=== PATIENT | female | born 1995 | race Caucasian/White ===

== ENCOUNTER 2018-06-15 19:59 | Emergency (ER) | payer OTHER, SELFPAY ==
[2018-06-15 20:03] VITALS: BP 151/91; PULSE 104; RESP 22; TEMP 37.2; O2SAT 98; BMI 47.7
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
[2018-06-15] MEDS: HYDROcodone Bitartrate/Apap 5/325 Tablet PO (20:33)
[2018-06-15 20:34] VITALS: O2SAT 98
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
[2018-06-15 21:33] VITALS: BP 137/100; PULSE 96; RESP 20; O2SAT 98
== END 2018-06-15 21:42 | disposition home or self-care (01) ==
PROVIDERS: Emergency Provider Emergency Medicine; Family Provider Student in an Organized Health Care Education/Training Program; PCP Student in an Organized Health Care Education/Training Program
DX: S16.1XXA Strain of muscle, fascia and tendon at neck level, initial encounter (principal); S40.021A Contusion of right upper arm, initial encounter; S20.211A Contusion of right front wall of thorax, initial encounter; V89.2XXA Person injured in unspecified motor-vehicle accident, traffic, initial encounter; Y93.9 Activity, unspecified; Y92.9 Unspecified place or not applicable
CPT/HCPCS: 70450; 71101; 72125; 73080; 99284

== ENCOUNTER 2019-06-05 19:35 | Emergency (ER) | payer OTHER, SELFPAY ==
[2019-06-05 19:35] VITALS: BP 163/81; PULSE 103; RESP 18; TEMP 36.6; O2SAT 98; BMI 43.0
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
[2019-06-05 21:27] VITALS: RESP 16
== END 2019-06-05 21:29 | disposition home or self-care (01) ==
PROVIDERS: Emergency Provider Emergency Medicine; Family Provider Student in an Organized Health Care Education/Training Program; PCP Student in an Organized Health Care Education/Training Program
DX: S97.81XA Crushing injury of right foot, initial encounter (principal); W55.19XA Other contact with horse, initial encounter; Y93.9 Activity, unspecified; Y92.9 Unspecified place or not applicable
CPT/HCPCS: 73630; 99283

== ENCOUNTER 2019-12-24 22:07 | Emergency (ER) | payer OTHER, SELFPAY ==
[2019-12-24 22:07] VITALS: BP 134/88; PULSE 107; RESP 15; TEMP 36.8; O2SAT 98; BMI 39.3
--- NOTE | 2019-12-24 22:38 | ED.VIS.GEN ---
History of Present Illness Chief Complaint: Abd Pain Informant: Patient Narrative: Patient presents on day 3 of her symptoms. Micah she developed diarrhea with a burning upper abdominal pain. She now describes it as cramping burning and occasionally sharp. She continues to have diarrhea. No nausea or vomiting. No fevers or rashes. No recent travel, antibiotics, or bad food exposures. No acquaintances with similar symptoms. He denies any prior abdominal surgeries. No home treatment such as Imodium Pepto-Bismol etc. she describes the diarrhea as watery to yellow. No blood. She reports that she has been urinating normally. Past Medical History - Allergies and Home Meds Allergies/Adverse Reactions: Allergies Penicillins Allergy (Verified 12/24/19 22:12) Other Primary Care Physician: Venkat Pena DO [Primary Care Provider] - Smoking Status: Never smoker Review of Systems General: Denies: Chills, Fever, Sweats Eyes: Denies: Visual changes - bilaterally, Diplopia ENT: Denies: Rhinorrhea, Sore throat Cardiovascular: Denies: Chest pain, Palpitations Respiratory: Denies: Dyspnea, Cough, Dyspnea on exertion Gastrointestinal: Reports: Abdominal pain, Diarrhea. Denies: Nausea, Vomiting, Melena, Hematochezia Genitourinary: Denies: Dysuria, Hematuria, Frequency Musculoskeletal: Denies: Back pain, Extremity Pain Skin: Denies: Rash, Wounds Neurological: Denies: Headache, Weakness, Numbness Physical Exam Vital Signs/Narrative: Vital Signs Temp Pulse Resp BP Pulse Ox 12/24/19 22:07 98.3 F 107 H 15 134/88 H 98 Inital Vital Signs reviewed: Yes General: Well nourished, Well developed, No Acute Distress Head: Normocephalic, Atraumatic Eyes: Perrl, EOMI ENT: Moist mucous membranes, No rhinorrhea Neck: Supple, Nontender Cardiovascular: Regular rate, Regular rhythm, No murmurs Respiratory: No distress, CTA bilaterally, Chest nontender Abdomen: Soft, Nondistended, Normal bowel sounds, Tender - Tenderness in the epigastrium. Negative for: Guarding, Rebound tenderness Back: Nontender, Normal Inspection Extremities: Nontender, No edema Skin: Normal color, No rash Neurological: Alert, Oriented x3, Cranial nerves II-XII grossly intact, Normal Strength, Normal Sensation Psychological: Normal affect, Normal Mood Diagnostic/Tx/Re-eval - Medical Decision Making Psych labs showed a normal white count. Potassium 3.2. Liver enzymes normal. Lipase normal. Patient received a GI cocktail and Imodium. She received 1 L of IV fluids. This point I believe this most likely gastroenteritis. The burning upper abdominal pain is probably gastritis. I will write for some Zofran in case the patient does develop vomiting. I did encourage her to take Imodium for the diarrhea return if worsening or concerns follow-up if not improving ED Disposition - Plan for ED Patient: Disposition: Home or Assisted Living Diagnosis: Gastroenteritis Instructions: GASTROENTERITIS, Viral (6y-Adult) Prescriptions: Ondansetron [Zofran Odt] 4 mg PO Q6H PRN PRN #20 tab PRN Reason: Nausea Prescription Printed Referrals: Venkat Pena DO [Primary Care Provider] - As Needed
[2019-12-24] MEDS: 0.9% Normal Saline 1,000 ML 999 ML IV (22:51)
[2019-12-24] MEDS: Loperamide 2 MG Capsule 4 MG PO (22:52)
[2019-12-24] MEDS: Mag Hydrox/Al Hydrox/Simeth 30 ML UDC PO (22:57)
[2019-12-24 23:31] LABS: Absolute Lymphocyte Count 1.74 X10^3/uL (0.83-4.51); Basophil# 0.05 X10^3/uL; Basophil% 0.6 % (0-1); Eosinophils% 1.2 % (0-5); Hematocrit 44.4 % (37-47); Hemoglobin 14.6 g/dL (12.0-15.0); Lymphocyte # 1.74 X10^3/ul (4.0); Lymphocyte % 21.4 % (19-41); Mean Corp Hgb Conc 32.9 g/dL (32-36); Mean Corpuscular Hgb 28.4 pg (27.0-32.0); Mean Corpuscular Volume 86.4 fL (81-99); Mean Platelet Vol. 9.4 fl (6.2-12.0); Monocyte# 1.17 X10^3/uL; Monocyte% 14.4 % (0-10); NRBC Flagged by Analyzer 0 % (0-5); Neutrophil # 4.98 X10^3/uL (2.7-7.7); Neutrophil % 61.3 % (47-70); Platelet Count 249 K/mm3 (150-450); RBC Distribution Width SD 40.4 fl (35.1-43.9); Red Blood Count 5.14 M/mm3 (4.2-5.4); White Blood Count 8.1 K/mm3 (4.4-11.0)
[2019-12-24 23:36] LABS: ALB/GLOB Ratio 0.8 RATIO (0.9-2.4); AST(SGOT) 29 U/L (15-37); Alanine Aminotransfer ALT/SGPT 43 U/L (13-56); Albumin, Serum 3.2 g/dL (3.2-5.0); Alkaline Phosphatase 66 U/L (45-117); Anion Gap 8 (5-15); BUN 8 mg/dL (7-18); BUN/Creat Ratio 9.9 RATIO (10-20); Calcium,Total 8.6 mg/dL (8.5-10.1); Chloride 103 mmol/L (98-107); Creatinine, Serum 0.81 mg/dL (0.55-1.02); EST Glomerular Filtration Rate 92 mL/min (>60); Est Glom Filt Rate - Afr Amer 112 mL/min (>60); Estimated Creatinine Clearance 104.15 ml/min; Globulin 4.2 g/dL (2.2-4.2); Glucose 81 mg/dL (74-106); Lipase 283 U/L (73-393); Potassium 3.2 mmol/L (3.5-5.1); Protein, Total 7.4 g/dL (6.4-8.2); Sodium Level 137 mmol/L (136-145)
[2019-12-25 00:33] VITALS: BP 128/78; PULSE 99; RESP 16; O2SAT 97
== END 2019-12-25 00:34 | disposition home or self-care (01) ==
PROVIDERS: Emergency Provider Emergency Medicine; PCP Student in an Organized Health Care Education/Training Program
DX: K52.9 Noninfective gastroenteritis and colitis, unspecified (principal)
CPT/HCPCS: 80053; 83690; 85025; 96360; 96361; 99284; J7030

== ENCOUNTER 2021-03-14 06:32 | Emergency (ER) | payer OTHER, SELFPAY ==
[2021-03-14 06:33] VITALS: BP 175/122; PULSE 133; RESP 18; TEMP 36.7; O2SAT 100; BMI 42.7
--- NOTE | 2021-03-14 06:37 | US_ITS ---
STUDY: ABDOMINAL ULTRASOUND - RIGHT UPPER QUADRANT REASON FOR VISIT: Female, 25 years old PAIN TECHNIQUE: Ultrasound evaluation of the right upper quadrant was performed with real-time and static ryan-scale imaging. TECHNICAL QUALITY: Adequate. COMPARISON: None. FINDINGS: Liver: The liver measures 18.1 cm. There is normal echogenicity of the liver. The bile ducts are within normal limits. There is hepatic color flow. The direction of portal flow is hepatopetal. There is no demonstrated mass lesion. Gallbladder: Normal distended gallbladder. The gallbladder wall measures 2 mm. There is a negative sonographic Rosas''s sign. There is no pericholecystic fluid. There are multiple echogenic structures within the gallbladder, consistent with multiple gallstones. Common Bile Duct (C.B.D.): The common bile duct measures 4 mm. Pancreas: Normal size of the head, body and tail of the pancreas. There is normal echogenicity of the pancreas. There is no demonstrated pancreatic mass or cyst. Right Kidney: Normal size of the right kidney. The right kidney measures 12.3 cm. Normal renal cortex. The right cortex measures 1.5 cm. There is no demonstrated renal mass or cyst. There is no right hydronephrosis. US/Gallbladder IMPRESSION: Cholelithiasis. Electronically Signed: Evaristo Urban MD at 8:18 EDT Tel , Service support ,
--- NOTE | 2021-03-14 06:38 | ED.DCSUM_ITS ---
History of Present Illness <Isi Brown - Last Filed: 03/14/21 09:11> Informant: Patient Narrative: 25-year-old female with no significant past medical history presents with concern for right upper quadrant pain. States it began approximately 1 hour ago. Sudden onset. Aching. Nausea without vomiting. States that she feels like she is full of gas. Denies any urinary symptoms, vaginal bleeding or discharge, constipation or diarrhea. Denies any concern for or STDs. <SharminbarryKavon - Last Filed: 03/16/21 10:10> Chief Complaint: Abd Pain Past Medical History <Isi Brown - Last Filed: 03/14/21 09:11> Prior records reviewed: Yes Past Medical History: None Surgical History: no surgical history Lives: With Family Smoking Status: Never smoker Alcohol: None Drugs: None <JoseKavon - Last Filed: 03/16/21 10:10> - Allergies and Home Meds Allergies/Adverse Reactions: Allergies Penicillins Allergy (Verified 03/14/21 06:37) Other Primary Care Physician: Venkat Pena DO [Primary Care Provider] - Usha Francisco MD [STAFF PHYSICIAN] - Review of Systems General: Denies: Chills, Fever, Sweats Eyes: Denies: Visual changes - bilaterally, Diplopia ENT: Denies: Rhinorrhea, Sore throat Cardiovascular: Denies: Chest pain, Palpitations Respiratory: Denies: Dyspnea, Cough, Dyspnea on exertion Gastrointestinal: Reports: Abdominal pain, Nausea. Denies: Vomiting, Diarrhea, Melena, Hematochezia Genitourinary: Denies: Dysuria, Hematuria, Frequency Musculoskeletal: Denies: Back pain, Extremity Pain Skin: Denies: Rash, Wounds Neurological: Denies: Headache, Weakness, Numbness <Kavon Garcia - Last Filed: 03/16/21 10:10> Physical Exam Vital Signs/Narrative: Vital Signs Temp Pulse Resp BP Pulse Ox 03/14/21 08:47 75 16 128/72 H 98 03/14/21 06:33 98.1 F 133 H 18 175/122 H 100 <Isi Brown - Last Filed: 03/14/21 09:11> Vital Signs/Narrative: Vital Signs Temp Pulse Resp BP Pulse Ox 03/14/21 06:33 98.1 F 133 H 18 175/122 H 100 Inital Vital Signs reviewed: Yes General: Well nourished, Well developed, No Acute Distress Head: Normocephalic, Atraumatic Eyes: Perrl, EOMI ENT: Moist mucous membranes, No rhinorrhea Neck: Supple, Nontender Cardiovascular: Regular rate, Regular rhythm, No murmurs Respiratory: No distress, CTA bilaterally, Chest nontender Abdomen: Soft, Nondistended, Normal bowel sounds, Tender, Rosas's sign, - - RUQ tenderness Back: Nontender, Normal Inspection Extremities: Nontender, No edema Skin: Normal color, No rash Neurological: Alert, Oriented x3, Cranial nerves II-XII grossly intact, Normal Strength, Normal Sensation Psychological: Normal affect, Normal Mood <Kavon Garcia - Last Filed: 03/16/21 10:10> Diagnostic/Tx/Re-eval - Medical Decision Making Patient was checked out to me to check gallbladder ultrasound results. Gallbladder ultrasound shows Cholelithiasis. Patient is resting comfortably on reevaluation. Her pain is controlled. Discussed with Dr. Francisco and patient will follow-up as an outpatient. She is given prescription for [place]. Advised return to the ED for worsening complaints. <Isi Brown - Last Filed: 03/14/21 09:11> - Medical Decision Making Patient having pain in her right upper quadrant on evaluation. Tachycardic with normal blood pressure. Patient treated with pain medication as well as antiemetics and a fluid bolus. Patient will be signed out to oncoming physician pending an ultrasound of the right upper quadrant. Stable at time of handoff. <Kavon Garcia - Last Filed: 03/16/21 10:10> ED Disposition <Isi Brown - Last Filed: 03/14/21 09:11> <Kavon Garcia - Last Filed: 03/16/21 10:10> - Plan for ED Patient: Disposition: Home or Assisted Living Instructions: ED Gallstones with Biliary Colic Prescriptions: Hydrocodone Bitart/Apap 5-325 [[place] 5MG-325MG] 1 tablet PO Q6H PRN PRN 3 Days #10 tab PRN Reason: Pain Prescription Printed Referrals: Venkat Pena DO [Primary Care Provider] - Usha Francisco MD [STAFF PHYSICIAN] -
[2021-03-14] MEDS: 0.9% Normal Saline 1,000 ML 999 ML IV (06:46)
[2021-03-14] MEDS: Ondansetron 4 MG/2 ML Vial IV (06:46)
[2021-03-14] MEDS: HYDROmorphone 1 MG/ML Syringe 0.5 MG IV (06:46)
[2021-03-14 06:50] LABS: Absolute Lymphocyte Count 4.01 X10^3/uL (0.83-4.51); Absolute Neutrophil Count 6.1 X10^3/uL (2.0-7.7); Basophil# 0.03 X10^3/uL; Basophil% 0.3 % (0-1); Eosinophil# 0.06 X10^3/uL; Eosinophils% 0.5 % (0-5); Hematocrit 40.7 % (37-47); Hemoglobin 13.2 g/dL (12.0-15.0); Lymphocyte # 4.01 X10^3/ul (0.83-4.51); Lymphocyte % 36.5 % (19-41); Mean Corp Hgb Conc 32.4 g/dL (32-36); Mean Corpuscular Hgb 28.3 pg (27.0-32.0); Mean Corpuscular Volume 87.3 fL (81-99); Mean Platelet Vol. 9.2 fl (6.2-12.0); Monocyte% 7.3 % (0-10); Mucous, Urine 0 SEEN /hpf (<or=2+); NRBC Flagged by Analyzer 0 % (0-5); Neutrophil # 6.06 X10^3/uL (2.7-7.7); Platelet Count 348 K/mm3 (150-450); RBC Distribution Width CV 13.4 % (11.6-14.6); RBC Distribution Width SD 42.4 fl (35.1-43.9); Red Blood Count 4.66 M/mm3 (4.2-5.4)
[2021-03-14 06:53] LABS: Color, Urine Yellow (Yellow); Glucose, Dipstick 50 mg/dl (Normal); Ketone-Dipstick Negative (Negative); Leukocyte Esterase-Dipstick 25 /ul (Negative); Nitrite-Dipstick Negative (Negative); Occult Blood-Urine 25 /ul (Negative); Protein-Dipstick Negative (Negative); Urine Bilirubin Dipstick Negative (Negative); Urine Clarity Clear (Clear); Urine Urobilinogen Normal (Normal)
[2021-03-14 06:59] LABS: Bacteria 2+ /hpf (None Seen); Internal QC Validated? YES +Cl - CLEAR BKGD; Pregnancy, Urine Negative Negative; Red Blood Cells-Urine 0-5 SEEN /hpf (0-5); Squamous Epithelial Cells - UA 0-5 SEEN /hpf (5-10); White Blood Cells 5-10 SEEN /hpf (0-5)
[2021-03-14 07:00] LABS: Transitional Epithelial - Ur 0-5 SEEN /hpf (0-5)
[2021-03-14 07:07] LABS: ALB/GLOB Ratio 0.8 RATIO (0.9-2.4); AST(SGOT) 10 U/L (15-37); Alanine Aminotransfer ALT/SGPT 20 U/L (13-56); Albumin, Serum 3.5 g/dL (3.2-5.0); Alkaline Phosphatase 62 U/L (45-117); Anion Gap 6 (5-15); BUN 12 mg/dL (7-18); BUN/Creat Ratio 19.2 RATIO (10-20); Calcium,Total 8.6 mg/dL (8.5-10.1); Chloride 106 mmol/L (98-107); Creatinine, Serum 0.63 mg/dL (0.55-1.02); EST Glomerular Filtration Rate 123 mL/min (>60); Est Glom Filt Rate - Afr Amer 149 mL/min (>60); Estimated Creatinine Clearance 132.75 ml/min; Globulin 4.2 g/dL (2.2-4.2); Glucose 102 mg/dL (74-106); Lipase 440 U/L (73-393); Potassium 3.7 mmol/L (3.5-5.1); Protein, Total 7.7 g/dL (6.4-8.2); Sodium Level 138 mmol/L (136-145)
[2021-03-14 08:47] VITALS: BP 128/72; PULSE 75; RESP 16; O2SAT 98
== END 2021-03-14 09:35 | disposition home or self-care (01) ==
LOC: ED 07:50
PROVIDERS: Emergency Provider Emergency Medicine; PCP Student in an Organized Health Care Education/Training Program
DX: R10.11 Right upper quadrant pain (principal); R11.0 Nausea; R00.0 Tachycardia, unspecified; K80.20 Calculus of gallbladder without cholecystitis without obstruction
CPT/HCPCS: 76705; 80053; 81001; 81025; 83690; 85025; 96361; 96374; 96375; 99283; J7030; A4216; J2405

== ENCOUNTER 2021-03-25 11:34 | Day surgery (SDC) | payer OTHER, SELFPAY ==
--- NOTE | 2021-03-24 18:18 | PCM.HP.BLA ---
History and Physical Date of Admission: 03/25/21 Carine Mcmahon 1995 ? ? REFERRING PHYSICIAN:? ?[facility] ? CHIEF COMPLAINT:? ?No chief complaint on file.? ? HPI: The patient is a 25 year old female who presented to [facility] ED with complaint of RUQ abdominal pain. She denies previous episodes.? Though she was hospitalized a year ago with acute pancreatitis with diarrhea. She describes the pain as a sudden onset, described as a sharp, pressure type pain, causing her to double over. She had nausea but no emesis. Went to ED on 03/14/2021 with US gallbladder revealing the following gallbladder wall measures 2mm..no pericholecystic fluid..,multiple echogenic structures within the gallbladder consistent with multiple gallstones...,CBD measures 4mm. She denies biliary obstructive signs such as jaundice or icterus. Denies fevers. No gallbladder disease known in family. Today, she has minimal abdominal pain. ? ? PAST MEDICAL HISTORY DiagnosisDate ?BMI>40? PAST SURGICAL HISTORY ProcedureLateralityDate ?NONE ? ? ? Current Outpatient Medications MedicationSig ?HYDROcodone-acetaminophen (NORCO) 5-325 mg per tabletTake 1 tablet by mouth every 8 hours as needed. ?levothyroxine (SYNTHROID) 50 mcg tabletTake 1 tablet by mouth once daily. Take on empty stomach. For Thyroid ?Drospirenone-Ethinyl Estradiol (KELLEN, 28,) 3-0.02 mg per tabletTake 1 tablet by mouth once daily. ?Cholecalciferol, Vitamin D3, 125 mcg (5,000 unit) capTake 1 capsule by mouth once daily. ?aspirin/acetaminophen/caffeine (EXCEDRIN MIGRAINE ORAL)Take 500 mg by mouth as needed. ? ? ALLERGIES: Bactrim [Sulfamethoxazole-Trimethoprim] and Penicillin ? PERSONAL HISTORY:? Social History ? Tobacco Use ?Smoking status:Never Smoker ?Smokeless tobacco:Never Used Vaping Use ?Vaping Use:Never used Substance Use Topics ?Alcohol use:Yes ? Comment: Socially ?Drug use:No ?? ? FAMILY HISTORY? ProblemRelationAge of Onset ?other (endometriosis)Mother? ?Skin CancerFather? Skin- basal cell (ears, nose), melanoma (back) ?other (PCOS)Sister? ?Pancreatic CancerMaternal [id number] ?? ? pancreatic ?DiabetesMaternal Grandfather? ?HeartPaternal Grandmother? ?DiabetesPaternal Grandmother? ?Breast CancerPaternal Grandmother? Breast Cancer, and Skin Cancer ?Skin CancerPaternal Grandmother? ?DiabetesPaternal Grandfather? ?Skin CancerPaternal Grandfather? ? ? REVIEW OF SYSTEMS: General - denies fevers, denies anorexia, denies weight loss Cardiovascular - denies chest pain, denies history of ND Pulmonary - denies shortness of breath, denies coughing up blood Gastrointestinal - see HPI, denies hematemesis, denies blood in stools Neurological - denies seizures, denies chronic numbness/weakness of extremities, denies chronic headaches Genitourinary - had kidney stone in past, denies burning with urination, denies blood in urine Hematological - denies spontaneous/prolonged bleeding Skin - denies nonhealing skin wounds Musculoskeletal - no new muscle/bone pain Endocrine - denies diabetes, has hypothyroidism Psychological ? denies hallucinations ? ? PHYSICAL EXAMINATION: General:? The patient is 25 year old female, well nourished, well hydrated in no acute distress.? The patient is oriented to time, place, and person. VITALS: Ht: 5'7? ?Wt 264#? ?Temp 98.5F? ?RR 16? ?HR 97 ? Head ? Normocephalic. EOM intact with sclera clear and no icterus noted. Wearing glasses Neck - supple with no jugular venous distention noted. Trachea is midline.? Lungs ? clear to auscultation. Normal breath sounds. No rales/rhonchi/wheezing noted. No labored breathing noted, such as retractions. No cough heard. Heart ? normal S1 and S2 auscultated. No rubs/clicks/murmurs noted. Regular rate. Abdomen ? soft and benign. Normal bowel sounds. No abdominal bruits noted. Difficult to determine if any masses or organomegaly due to body habitus. Extremities ? no calf tenderness noted. No pitting edema noted. Skin ? normal skin integrity. Neurological ? gait normal, no focal deficits noted. Psych ? calm and appropriate RADIOLOGIC STUDIES:? As Noted ? ? IMPRESSION: biliary colic, cholelithiasis ? PLAN:? ?I have discussed the above with the patient. I have reviewed the radiographs. I have offered laparoscopic cholecystectomy, possible cholangiograms I have explained the procedure to the patient. I have counseled the patient as to the risks of the procedure, including but not limited to: infection, bleeding, injury to any blood vessels/nerves, scar tissue, injury to any intrabdominal organs, injury to bowel/bladder, injury to the common bile duct/biliary tree, bile leakage, intraabdominal abscess/bleeding, hernias at incisional sites, wound infections, complications of anesthesia, etc. ? the patient understands. ? The patient was offered a surgery/procedure . The provider and patient have discussed in detail the risk of exposure to and/or potential harm posed by the COVID-19 virus with having a surgery/procedure at this time versus the risk of? delaying the surgery/procedure. It is not possible to know either the risk of delaying the surgery or procedure or chance of getting an infection with perfect accuracy, but a joint decision was made between the patient and the provider? to proceed at this time with the scheduled surgery/procedure. ? The patient wishes to proceed.? ? ? I have answered all questions to the patient?s satisfaction and the patient has no further questions. . Diagnoses: (K80.20) Calculus of gallbladder without cholecystitis without obstruction? (primary encounter diagnosis) ? ? ? Return to Clinic: The patient is instructed to follow-up with me after the procedure. ? I have confirmed and edited as necessary, the PFSH and ROS obtained by others. ? Usha Francisco MD
[2021-03-25] VITALS (11 sets, daily range): BP systolic 102–128; BP diastolic 52–79; PULSE 75–91; RESP 16–18; TEMP 36.2–37.4; O2SAT 93–99; BMI 42.5
--- NOTE | 2021-03-25 11:05 | EKG12_ITS ---
Test Reason : PRE-OP Blood Pressure : / mmHG Vent. Rate : 077 BPM Atrial Rate : 077 BPM P-R Int : 140 ms QRS Dur : 080 ms QT Int : 370 ms P-R-T Axes : 049 041 039 degrees QTc Int : 418 ms Normal sinus rhythm Normal ECG Confirmed by SHARON LOVE, JAELYN ([id number]), manager editorial HA FRIED ([id number]) on 03/27/2021 9:07:51 AM Referred By: Usha Francisco Confirmed By:JAELYN HERRERA MD
[2021-03-25 12:22] LABS: Internal QC Validated? YES +Cl - CLEAR BKGD; Pregnancy, Urine Negative Negative
[2021-03-25] MEDS: Lactated Ringers 1,000 ML 125 ML IV ×3 (12:26→17:40)
[2021-03-25] MEDS: Bupiv/Epi 0.25% 30 ML Vial (12:51)
--- NOTE | 2021-03-25 13:15 | GALL_PTH ---
PATIENT: EFRA WALLACE LOC: [facility] U#:[id number] AGE/SX: 25/F ROOM: RE03/25/[address]: Dr. Usha Francisco MD : 1995 BED: DIS: 03/25/2021 SPEC #: [id number] RECD: 03/25/21 15:01 STATUS: LASHAUN AG #: [id number] MAURILIO: 03/25/21 13:[address]: Usha Francisco DEPT: SURGICAL PATHOLOGY RECD BY: Emilie Zabala ENTERED: 03/26/21 09:28 SP TYPE: [place] DR: Dr. Venkat Pena DO Tissues: Gallbladder, NOS Procedures: Surgery Specimen Level III HEADER OPERATION: Laparoscopic cholecystectomy with IOC PRE-OP DIAGNOSIS: Biliary colic, cholelithiasis TISSUE SUBMITTED: Gallbladder and contents MICROSCOPIC DIAGNOSIS Gallbladder and contents, cholecystectomy: Chronic cholecystitis, cholelithiasis and cholesterolosis. SJ:dina 03/27/2021 MICROSCOPIC DESCRIPTION Slides are reviewed. GROSS DESCRIPTION Received is one container labeled with the patient's name and designated gallbladder and contents. The specimen consists of a gallbladder measuring 6.5 cm in length and up to 3 cm in diameter. The external surface is pink-caruso, smooth and glistening for the most part. Focally it is granular, hemorrhagic and contains cautery artifact. The gallbladder contains green-yellow mucoid bile and four mulberry, yellow stones measuring in aggregate 2.4 x 1.5 x 0.7 cm and 0.5 to 1 cm in greatest dimension. The mucosa is bile-stained and without any mass lesions. The gallbladder wall measures up to 0.2 cm in thickness. The mucosa also shows several yellowish streaks consistent with cholesterolosis. Hedis Nurse sections from the gallbladder and the cystic duct are submitted in one cassette. / VÍCTOR:dina 03/26/21 TC:3 CPT: 71172
--- NOTE | 2021-03-25 14:01 | RAD_ITS ---
STUDY: INTRAOPERATIVE CHOLANGIOGRAM. REASON FOR EXAM: Female, 25 years old. LAPAROSCOPIC, CHOLECYSTECTOMY WITH IOC FLUOROSCOPY TIME (if supplied): ( 5 seconds ) minutes/seconds. One image was submitted. TECHNIQUE: Intraoperative cholangiogram was performed by the surgeon. Imaging was submitted. COMPARISON: None. FINDINGS: The visualized intrahepatic and extrahepatic biliary ducts are unremarkable. Free flow of contrast is seen in the duodenum. RAD/Cholangiogram/ O R,Initial IMPRESSION: Unremarkable intraoperative cholangiogram. Electronically Signed: Deandre Mejias MD at 14:51 EDT , Service support ,
--- NOTE | 2021-03-25 14:26 | PCM.OPRPT ---
Report of Operation Date of Procedure: 03/25/21 Pre-Operative Diagnosis: cholelithiasis Post-Operative Diagnosis: chronic cholecystitis, cholelithiasis Surgery/Procedure Performed:: laparoscopic cholecystectomy with cholangiograms Description of Surgical Findings:: normal cholangiograms movie shot camera operator: Leatha Lobo movie shot camera operator: Dangelo George Type of Anesthesia: General Anesthesiologist: Edwin Reed Specimen's removed: gallbladder and contents Drains: none Estimated Blood Loss (mL): < 10 ml Fluids Replaced: 1000 ml RL Description of Procedure: After informed consent was given, the patient was brought to the Operating Room. Appropriate time out protocol was followed. The patient was placed in the supine position. The patient was then placed under general endotracheal anesthesia by the anesthesia provider. The abdomen was then prepped with a sterile surgical skin preparation and sterile surgical drapes were placed. An area superior to the umbilical dimple was grasped with penetrating clamps and the skin and subcutaneous tissues were infiltrated with 0.25% marcaine with epinephrine. A skin incision was then made with a 15 blade scalpel. The anterior abdominal wall was elevated and a Veress needle was carefully inserted into the intraabdominal cavity. It was checked to be in the proper position with a normal saline drop test. A CO2 pneumoperitoneum was then created. Once this was achieved, then the Veress needle was removed and an 11mm trocar was placed in its stead. A 10mm laparoscope was then inserted into the trocar and careful attention was directed to the intraabdominal contents. There was no evidence of injury to any intraabdominal organs from insertion of the Veress needle or the trocar. Under direct visualization, a 5mm subxiphoid trocar and two lateral 5mm right subcostal trocars were placed. The skin and subcutaneous tissues at these sites were infiltrated with 0.25% marcaine with epinephrine prior to placement of these trocars. Attention was then directed to the right upper quadrant of the abdomen. Graspers were placed in the lateral trocars to grasp the distal aspect of the gallbladder and direct it cephalad and to grasp the gallbladder at King?s pouch and direct it laterally. Dissection then began on the proximal gallbladder continuing down to the area of the triangle of Calot to bluntly dissect out the cystic duct. The neck of the gallbladder was identified and blunt dissection continued to dissect out a segment of the cystic duct. A clip was then placed on the neck of the gallbladder. A small ductotomy was then made. A Ranfac catheter was brought in through a separate skin incision and placed into the cystic duct. An intraoperative cholangiogram was performed under fluoroscopy. The xray revealed no lesions in the common bile duct, arborization of the biliary tree, and good flow into the duodenum. The Ranfac catheter was then removed and two clips were placed proximal to the ductotomy and the cystic duct was then transected. The cystic artery was visualized and bluntly isolated and then two clips were placed proximally and one clip distally and then it was transected between the proximal and distal clips. The gallbladder was then from the liver bed using electrocautery. Once from the liver bed, it was brought out via the umbilical port. It was then forwarded to pathology for analysis. The liver bed was carefully examined. There was no evidence of bile leakage or bleeding. The cystic duct stump and cystic artery stump had their clips intact and there was no evidence of bile leakage or bleeding. The remainder of the abdomen was grossly normal. The CO2 was released and all trocars removed intact. The periumbilical fascia was approximated with a [id number] 0 vicryl suture. All skin incision were closed with 4-0 monocryl in a subdermal fashion. Cavilol and Steristrips were used to reinforce the skin closure. Sterile dressings were applied to all wounds. Sponge, needle and instrument count was verified and correct at time of skin closure. The patient was extubated and brought to the Recovery Room in stable condition. Complications none noted Admit VTE Documentation VTE Present on Admission: Yes VTE Mechan Device Prophylaxis: SCD's
--- NOTE | 2021-03-25 16:43 | EX.PCM.DISCH ---
Discharge Instructions Outpatient Procedure Reason For Visit: WENDY Flanagan [facility] Follow Up Care Test Results: Test results from this visit will be discussed in further detail at your follow-up appointment, if applicable. Discharge Plan Admission Attending Provider: Usha Francisco Primary Care Provider: Venkat Pena Instructions Additional Instructions / Restrictions: Recommended pain control regimen - May take 600 mg ibuprofen (Motrin) and then in 3-4 hours, may take 650 mg acetaminophen (Tylenol), then in 3-4 hours may take 600 mg ibuprofen, then in 3-4 hours may take 650 mg acetaminophen and so on for 2-3 days May take narcotic pain medication for pain that is not controlled by above and at night for comfort through the night Leave dressings in place - if they should become soiled or loose -may remove but do not replace, leave open to air - leave steristrips in place May get dressings wet in shower - do not scrub in the area and pat dry Do not soak - no tub baths/swimming Ice applied to areas of discomfort may help No lifting/pushing/pulling greater than 20 pounds for a month. Please call for a follow up appointment in 1-2 weeks, For any questions, can call the office at Wednesday through Wednesday - 8:00 - 4:30. Discharge Orders/Prescriptions Prescriptions: New hydrocodone-acetaminophen 5-325 mg tablet 1 tab PO Q8H 5 Days Qty: 15 RF: 0 No Action drospirenone-ethinyl estradiol 1 EACH tablet 1 tab PO DAILY RF: 0 levothyroxine 25 MCG tablet 50 mcg PO DAILY RF: 0 hydrocodone-acetaminophen [Mobile] 5-325 mg Tablet 1 tab PO Q6H PRN (Reason: Pain) RF: 0 Referrals: Venkat Pena DO [Primary Care Provider] - Disposition Discharge Orders: Discharge Patient (Routine); Ordered 03/25/21 Ordered By: Dr. Usha Francisco
[2021-03-25] MEDS: Ibuprofen 400 MG Tablet 800 MG PO (17:11)
== END 2021-03-25 18:41 ==
LOC: SDC 11:35 → AC 11:36
PROVIDERS: Anesthesiology; PCP Student in an Organized Health Care Education/Training Program; Referring Provider Surgery; Visit Provider Surgery
PROC: (CPT 47610; principal; 2021-03-25 12:55)
DX: K80.10 Calculus of gallbladder with chronic cholecystitis without obstruction (principal); E03.9 Hypothyroidism, unspecified; G43.909 Migraine, unspecified, not intractable, without status migrainosus; Z87.19 Personal history of other diseases of the digestive system; Z87.442 Personal history of urinary calculi; Z79.899 Other long term (current) drug therapy
CPT/HCPCS: 00790; 47563; 74300; 76000; 81025; 88304; 93005; J7120; J2405

== ENCOUNTER 2025-03-29 22:37 | Emergency (ER) | payer SELFPAY ==
[2025-03-29 22:38] VITALS: BP 129/93; PULSE 90; RESP 18; TEMP 36.1; O2SAT 100; BMI 39.9
--- NOTE | 2025-03-29 23:05 | RAD_ITS ---
PROCEDURE: HAND MIN 3 VIEWS; WRIST MIN 3 VIEWS 03/29/2025 REASON FOR EXAM: PAIN TECHNIQUE: 3 view(s) each of the left hand and wrist COMPARISON: None FINDINGS: Nondisplaced comminuted intra-articular fracture distal phalanx of the thumb. Moderate soft tissue swelling. No other fractures are noted. Joint spaces are maintained. No radiopaque foreign body. RAD/Wrist min 3 Views IMPRESSION: Nondisplaced comminuted intra-articular fracture distal phalanx thumb, with sof t tissue swelling. Reading Location: [facility]
--- NOTE | 2025-03-29 23:05 | RAD_ITS ---
PROCEDURE: HAND MIN 3 VIEWS; WRIST MIN 3 VIEWS 03/29/2025 REASON FOR EXAM: PAIN TECHNIQUE: 3 view(s) each of the left hand and wrist COMPARISON: None FINDINGS: Nondisplaced comminuted intra-articular fracture distal phalanx of the thumb. Moderate soft tissue swelling. No other fractures are noted. Joint spaces are maintained. No radiopaque foreign body. RAD/Hand Min 3 Views IMPRESSION: Nondisplaced comminuted intra-articular fracture distal phalanx thumb, with sof t tissue swelling. Reading Location: [place]
[2025-03-30] MEDS: oxyCODONE 5 MG Tablet 10 MG PO (00:42)
--- NOTE | 2025-03-30 01:04 | EDS_ITS ---
HPI History of Present Illness Chief Complaint: Upper Extremity Injury Informant: patient and spouse/S.O. Narrative Narrative: Patient is a 29-year-old female with past medical history of hypothyroidism. She is [id number]. She states that around 10 PM this evening she was trying to undo a press for a T-shirt machine which she has at home. She states that she was trying to get the press unclamped somehow the press fell and landed on her left thumb. She states she had immediate pain and swelling. She reports range of motion is limited and at this time after the trauma. She has concern for fracture and therefore comes in for evaluation. She denies any other injuries [facility] Medical History (Updated 03/30/25 @ 07:[address] Jake Doe, DO) Physical exam, pre-employment Wears contact lenses Hypothyroidism Kidney stones Non-smoker Irregular heart beat Migraine headache Syncope Injury of head and neck Home Medications ?Medication ?Instructions ?Recorded ?Last Taken ?Type drospirenone 3 mg-ethinyl 1 tab PO DAILY 12/24/19 Unkn own History estradiol 0.02 mg tablet levothyroxine 25 mcg tablet 50 mcg PO DAILY 03/14/21 0 03/25/21 06:45 History hydrocodone-acetaminophen 5-325mg 1 tab PO Q6H PRN Tyson n 03/21/21 Unknown History 5mg-325mg hydrocodone-acetaminophen 5-325mg 1 tab PO Q8H 5 days #15 tabs 03/25/21 Unknown Rx 5mg-325mg oxycodone-acetaminophen 5 mg-325 1 tab PO Q6H PRN pain 5 days #20 03/30/25 Unknown Rx mg tablet (Percocet) tabs Allergy/AdvReac Type Severity Reaction Status Date / Time Latex, Natural Rubber Allergy Rash Verified 03/29/25 22:38 Penicillins Allergy Other Verified 03/29/25 22:38 sulfamethoxazole (From Allergy Itching Verified 03/29/25 22:38 Bactrim) trimethoprim (From Bactrim) Allergy Itching Verified 03/29/25 22:38 Social History Smoking Status: Never smoker ROS ROS ED Constitutional Constitutional ED: Denies chills or fever(s) ENT ENT ED: Denies sore throat Cardiovascular Cardiovascular: Denies chest pain Respiratory/Chest Respiratory/Chest: Denies cough or dyspnea Gastrointestinal Gastrointestinal: Denies abdominal pain, diarrhea, nausea or vomiting Genitourinary Genitourinary ED: Denies dysuria Musculoskeletal Musculoskeletal: Reports other Details: Positive left thumb/hand pain Integumentary Reports other Details: Positive bruising left thumb/hand ; Denies rash Neurologic Neurologic: Denies headache(s) or paresthesias Hematologic/Lymphatic Hematologic/Lymphatic: Denies easy bleeding or easy bruising EXAM Physical Exam Const Vital Signs: 03/29/25 22:38 Temperature 97 F L Temperature Source Temporal Pulse Rate 90 Respiratory Rate 18 Blood Pressure 129/93 H Blood Pressure Mean 105 Pulse Ox 100 Oxygen Delivery Method Room Air Positive well nourished and well developed General Appearance ED: well developed HEENT HEENT Narrative: Normocephalic atraumatic Eyes PERRL and EOMs intact bilaterally Neck full ROM and supple Resp normal respiratory effort and clear to auscultation bilaterally Cardio regular rate and regular rhythm Extremity Extremity Narrative: Left upper extremity is neurovascularly intact There is soft tissue swelling and ecchymosis to the distal phalanx of the thumb consistent with report/history of trauma. The volar pad is edematous and ecchymotic and there is mild firmness to palpation but the area still compressible going against compartment syndrome. No subungual hematoma noted. Patient is able to flex and extend her thumb at the MTP. However at the PIP joint her range of motion is limited concerning for intra-articular fracture. No overlying skin breakdown such as laceration to suggest open fracture. No pain in the anatomical snuffbox Neuro oriented x3 and CN's II-XII intact bilaterally Sensorium / Orientation: alert Psych mental status grossly normal Skin Skin Narrative: Soft tissue swelling with ecchymosis to the left thumb as documented above MDM MDM MDM Narrative Medical decision making narrative: Patient presented to the ER with report of direct trauma to the left hand/thumb. There is concern for fracture versus dislocation. By exam she does not have findings of compartment syndrome or subungual hematoma. X-rays of the hand and wrist were obtained which revealed a nondisplaced comminuted fracture of the distal phalanx with intra-articular involvement which does correlate with her physical exam. At this time as she is closed and neurovascularly intact there is no need for emergent orthopedic/hand surgery consultation. Patient was placed in a metal finger brace to help stabilize any fracture fragments and can follow-up as an outpatient as she is closed and neurovascularly intact. Plan of care was discussed with patient and spouse and they are agreeable to it History & Record Review Discussion w/independent historian: Patient and Significant other Radiography Diagnostic Testing: Clinical Impression(s) from Imaging Studies Hand X-Ray 03/29/25 23:05 IMPRESSION: Nondisplaced comminuted intra-articular fracture distal phalanx thumb, with soft tissue swelling. Reading Location: [facility] Wrist X-Ray 03/29/25 23:05 IMPRESSION: Nondisplaced comminuted intra-articular fracture distal phalanx thumb, with soft tissue swelling. Reading Location: [facility] Left hand x-ray as interpreted by the emergency medicine physician reveals a nondisplaced comminuted intra-articular fracture of the first distal phalanx Left wrist x-ray as interpreted by the emergency medicine physician reveals no acute fracture or dislocation or joint effusion Discharge Plan Triage Chief Complaint: Upper Extremity Injury ED Provider: Jake Doe Dx/Rx/DC Orders Clinical Impression: Fracture of thumb, Hypothyroidism Instructions: ED Fracture, Thumb Prescriptions: New oxycodone-acetaminophen [Percocet] 5-325 mg tablet 1 tab PO Q6H PRN (Reason: pain) 5 Days Qty: 20 0RF No Action drospirenone-ethinyl estradiol 1 EACH tablet 1 tab PO DAILY Patient Comments: TAKE 1 TABLET BY MOUTH EVERY DAY levothyroxine 25 MCG tablet 50 mcg PO DAILY hydrocodone-acetaminophen [[place]] 5-325 mg Tablet 1 tab PO Q6H PRN (Reason: Pain) hydrocodone-acetaminophen 5-325 mg tablet 1 tab PO Q8H 5 Days Qty: 15 0RF Primary Care Provider: Venkat Pena Referrals: Venkat Pena DO [Primary Care Provider] - Aayush Rodríguez MD [Med Staff - Active Staff] - (thumb fracture) Activity Restrictions/Additional Instructions: Please wear your thumb brace to stabilize your fracture and follow-up with Dr. Rodríguez to discuss need for further intervention regarding your thumb fracture. Return to the ER should you have any further concerns Print Language: Grenadian Disposition Disposition: Home, Self Care Discharge Date/Time: 03/30/25 01:18
== END 2025-03-30 01:18 | disposition home or self-care (01) ==
PROVIDERS: Emergency Provider Emergency Medicine; PCP Student in an Organized Health Care Education/Training Program; Visit Provider Emergency Medicine
DX: S62.525A Nondisplaced fracture of distal phalanx of left thumb, initial encounter for closed fracture (principal); E03.9 Hypothyroidism, unspecified; W22.8XXA Striking against or struck by other objects, initial encounter; Y93.89 Activity, other specified; Y92.009 Unspecified place in unspecified non-institutional (private) residence as the place of occurrence of the external cause; Z79.890 Hormone replacement therapy; Z79.3 Long term (current) use of hormonal contraceptives
CPT/HCPCS: 73110; 73130; 99282